=== PATIENT | female | born 1970 | race Caucasian/White ===

== ENCOUNTER 2023-09-25 18:04 | Emergency (ER) | payer OTHER ==
[~2023-09-25] VITALS: Ht 162.6 cm; Wt 56.0 kg
[2023-09-25] MEDS ORDERED: BOOSTRIX VACCINE (TETANUS/DIPHTH/ACEL. PERTUSSIS) 0.5ML SYR IM.IMMUN ONE (22:20)
[2023-09-25] MEDS ORDERED: CEPHALEXIN SUSP POWDER 250MG/5ML BTL 100ML PO ONE (22:25)
[2023-09-25 22:37] VITALS: BP 127/66; TEMP 97.8; O2SAT 96
[2023-09-25] MEDS ORDERED: CEPH250REC PO (22:39)
[2023-09-27] MEDS ORDERED: ALEV220T22 PO (10:05)
== END 2023-09-25 22:48 | disposition home or self-care (01) ==
LOC: M ED 18:04
DX: S62.633B Displaced fracture of distal phalanx of left middle finger, initial encounter for open fracture (principal); S61.303A Unspecified open wound of left middle finger with damage to nail, initial encounter; W23.0XXA Caught, crushed, jammed, or pinched between moving objects, initial encounter; F17.200 Nicotine dependence, unspecified, uncomplicated; Y92.9 Unspecified place or not applicable; Y93.9 Activity, unspecified; Y99.9 Unspecified external cause status; Z79.2 Long term (current) use of antibiotics

== ENCOUNTER 2023-09-28 15:12 | Day surgery (SDC) | payer MEDICAID, OTHER ==
[~2023-09-28] VITALS: Ht 162.6 cm; Wt 54.9 kg
[~2023-09-28 15:12] MED LIST: ALEV220T22 PO; CEPH250REC PO
[2023-09-28] MEDS ORDERED: LR 1,000 ML IV SCH (15:30)
[2023-09-28] MEDS ORDERED: ceFAZolin 2 GM/D5W 50 ML IV BAG As Ordered ONE (17:09)
[2023-09-28] MEDS ORDERED: LIDOCAINE 1% SDV 30ML VIAL As Ordered ONE (17:09)
[2023-09-28 17:30] VITALS: BP 135/62; TEMP 97.9; O2SAT 98
== END 2023-09-28 17:46 | disposition home or self-care (01) ==
LOC: M SDC 15:12
PROVIDERS: ATTEND Student in an Organized Health Care Education/Training Program
DX: S62.633B Displaced fracture of distal phalanx of left middle finger, initial encounter for open fracture (principal); W23.0XXA Caught, crushed, jammed, or pinched between moving objects, initial encounter; S69.82XA Other specified injuries of left wrist, hand and finger(s), initial encounter; J44.9 Chronic obstructive pulmonary disease, unspecified; F17.210 Nicotine dependence, cigarettes, uncomplicated; Y93.9 Activity, unspecified; Y92.9 Unspecified place or not applicable
CPT/HCPCS: 11750; 26756; 76000; J0665; J0690

== ENCOUNTER → 2023-10-04 | Outpatient (CLI) | payer OTHER | LOC: M SOG 08:07 | PROVIDERS: ATTEND Physician Assistant | DX: S62.633A Displaced fracture of distal phalanx of left middle finger, initial encounter for closed fracture (principal); Y93.9 Activity, unspecified; Y92.9 Unspecified place or not applicable ==

== ENCOUNTER → 2023-10-13 | Outpatient (CLI) | payer MEDICAID | LOC: M SOG 07:57 | PROVIDERS: ATTEND Physician Assistant | DX: S62.633B Displaced fracture of distal phalanx of left middle finger, initial encounter for open fracture (principal); X58.XXXA Exposure to other specified factors, initial encounter ==

== ENCOUNTER → 2023-11-02 | Outpatient (CLI) | payer MEDICAID | LOC: M SOG 08:08 | PROVIDERS: ATTEND Physician Assistant | DX: S62.633B Displaced fracture of distal phalanx of left middle finger, initial encounter for open fracture (principal); Z53.9 Procedure and treatment not carried out, unspecified reason ==

== ENCOUNTER → 2023-11-07 | Outpatient (CLI) | payer MEDICAID | LOC: M SOG 08:03 | PROVIDERS: ATTEND Physician Assistant | DX: S62.366 Nondisplaced fracture of neck of fifth metacarpal bone, right hand (principal) ==

== ENCOUNTER → 2024-02-12 | Outpatient (CLI) | payer OTHER | LOC: M SOG 14:25 | PROVIDERS: ATTEND Physician Assistant | DX: S62.633B Displaced fracture of distal phalanx of left middle finger, initial encounter for open fracture (principal); Y93.9 Activity, unspecified; Y92.9 Unspecified place or not applicable ==

== ENCOUNTER → 2024-12-03 | Outpatient (REF) | payer OTHER ==
[2024-12-04 15:41] LABS: HEMOGLOBIN A1c 5.2 % (4.0-6.0)
[2024-12-04 15:42] LABS: ALBUMIN 3.9 G/DL (3.2-5.2); ALKALINE PHOSPHATASE 167 U/L (35-104); ALT/SGPT 26 U/L (7.0-40); AST/SGOT 19 U/L (<34); BILIRUBIN,TOTAL 0.7 MG/DL (0.3-1.2); BLOOD UREA NITROGEN 7 MG/DL (9-23); CARBON DIOXIDE LEVEL 28 MMOL/L (20-31); CHLORIDE LEVEL 103 MMOL/L (98-107); CHOLESTEROL LEVEL 160 MG/DL (<200); CHOLESTEROL RISK RATIO 3.87 (<5); CREATININE FOR GFR 0.74 MG/DL (0.55-1.30); GLOMERULAR FILTRATION RATE > 60.0 (>51); GLUCOSE, FASTING 122 MG/DL (60-100); HDL CHOLESTEROL 41.3 MG/DL (>40); LDL CHOLESTEROL 97.3 MG/DL (<100); NON-HDL-C 118.7 MG/DL; POTASSIUM SERUM 3.5 MMOL/L (3.5-5.1); SODIUM LEVEL 141 MMOL/L (136-145); TOTAL PROTEIN 7.3 G/DL (5.7-8.2); TRIGLYCERIDES LEVEL 107 MG/DL (<150)
[2024-12-04 15:43] LABS: THYROID STIMULATING HORMONE 2.877 uIU/ML (0.55-4.78); TOTAL 25(OH) VITAMIN D 15.5 NG/ML (20.0-100.0)
[2024-12-04 16:14] LABS: HIV 1&2 SCREEN NEGATIVE (NEGATIVE)
[2024-12-04 16:22] LABS: HEPATITIS C VIRUS ABY INDEX 0.11 INDEX (<0.8)
== END ==
LOC: M LAB REF 12:52
PROVIDERS: ATTEND Physician Assistant
DX: J44.9 Chronic obstructive pulmonary disease, unspecified (principal); Z11.9 Encounter for screening for infectious and parasitic diseases, unspecified; E55.9 Vitamin D deficiency, unspecified; N94.10 Unspecified dyspareunia

== ENCOUNTER → 2024-12-20 | Outpatient (CLI) | payer OTHER | LOC: M RAD 08:39 | PROVIDERS: ATTEND Physician Assistant | DX: R91.8 Other nonspecific abnormal finding of lung field (principal); F17.210 Nicotine dependence, cigarettes, uncomplicated ==

== ENCOUNTER → 2025-01-06 | Outpatient (CLI) | payer OTHER | LOC: M CARPUL 07:58 | PROVIDERS: ATTEND Physician Assistant | DX: J44.9 Chronic obstructive pulmonary disease, unspecified (principal) ==

== ENCOUNTER → 2025-02-19 | Outpatient (REF) | payer OTHER, MEDICAID ==
[2025-02-19 17:50] LABS: ALBUMIN 3.9 G/DL (3.2-5.2); BILIRUBIN,DIRECT 0.2 MG/DL (<0.4); BILIRUBIN,TOTAL 0.7 MG/DL (0.3-1.2); TOTAL PROTEIN 7.2 G/DL (5.7-8.2)
== END ==
LOC: M LAB REF 17:20
PROVIDERS: ATTEND Physician Assistant
DX: R74.8 Abnormal levels of other serum enzymes (principal)

== ENCOUNTER 2025-07-27 13:08 | Emergency (ER) | payer MEDICAID, OTHER, SELFPAY ==
[~2025-07-27] VITALS: Ht 162.6 cm; Wt 54.3 kg
[2025-07-27] MEDS ORDERED: BUDE10.7 (13:14)
[2025-07-27] MEDS ORDERED: VENTAER INH (15:35)
[2025-07-27] MEDS ORDERED: IPRA0.00 INH (15:35)
[2025-07-27] MEDS ORDERED: NEBU1EAC80 MC (15:35)
[2025-07-27] MEDS ORDERED: BREAMIS10 MC (15:35)
[2025-07-27] MEDS ORDERED: AZIT-12 PO (15:35)
[2025-07-27] MEDS ORDERED: PRED20TA PO (15:35)
[2025-07-27 15:46] VITALS: BP 128/67; TEMP 97; O2SAT 96
== END 2025-07-27 15:48 | disposition home or self-care (01) ==
LOC: M ED 13:08
DX: J44.1 Chronic obstructive pulmonary disease with (acute) exacerbation (principal); B34.8 Other viral infections of unspecified site; F17.200 Nicotine dependence, unspecified, uncomplicated; Z79.52 Long term (current) use of systemic steroids; Z79.2 Long term (current) use of antibiotics; Z79.899 Other long term (current) drug therapy